=== PATIENT | female | born 1960 | race African-American/Black ===

== ENCOUNTER 2024-05-30 10:38 | Observation (INO) ==
[2024-05-30 16:02] LABS: BASOPHILS % (AUTO) 0.3 % (0.2-1.0); EOSINOPHILS % (AUTO) 0.2 % (0.9-2.9); HEMOGLOBIN 10.1 g/dL (12.0-16.0); LYMPHOCYTES % (AUTO) 10.4 % (21.0-51.0); MEAN CORPUSCULAR HEMOGLOBIN 25.9 pg (27.0-34.0); MEAN CORPUSCULAR HGB CONC 32.6 g/dL (33.0-35.0); MEAN CORPUSCULAR VOLUME 79.4 fL (80.0-100.0); MEAN PLATELET VOLUME 6.9 fL (7.4-11.0); MONOCYTES # (AUTO) 0.7 x10^3/uL (0.3-0.8); MONOCYTES % (AUTO) 7.3 % (0.0-13.0); NEUTROPHILS # (AUTO) 8.2 x10^3/uL (2.2-4.8); NEUTROPHILS % (AUTO) 81.8 % (42.0-75.0); PLATELET COUNT 303 X10^3/uL (150.0-450.0); RED CELL DISTRIBUTION WIDTH 15.9 % (11.6-16.5)
[2024-05-30 16:09] LABS: ALBUMIN 2.9 g/dL (3.4-5.0); CALCIUM 9.4 mg/dL (8.5-10.1); CARBON DIOXIDE 32.4 mmol/L (21-32); COR CA(FOR HYPOALB) 10.3 mg/dL (8.5-10.1); CREATININE 1.19 mg/dL (0.55-1.02); POTASSIUM 3.9 mmol/L (3.5-5.1); TOTAL PROTEIN 8.1 g/dL (6.4-8.2)
[2024-05-30] MEDS: NORCO 5/325 MG TAB PO PRN (16:36)
[2024-05-30] MEDS: PROVENTIL NEB TX 0.083% 2.5MG/ 3ML NEB SCH (17:30)
[2024-05-30] MEDS: DILAUDID INJ IVP PRN (18:37)
[2024-05-30] MEDS: PULMICORT NEB TX 0.5 MG NEB SCH (19:47)
[2024-05-31] MEDS: PULMICORT NEB TX 0.5 MG NEB ONE (02:39)
[2024-05-31] MEDS: HYDROCHLOROTHIAZIDE 25 MG TAB PO SCH (11:11)
[2024-05-31] MEDS: COZAAR PO SCH (11:11)
[2024-05-31] MEDS: HIBICLENS WASH EXT ONE (21:27)
[2024-06-01 06:23] LABS: BASOPHILS # (AUTO) 0.1 X10^3/uL (0.0-0.1); BASOPHILS % (AUTO) 0.4 % (0.2-1.0); EOSINOPHILS % (AUTO) 0.1 % (0.9-2.9); HEMATOCRIT 26.9 % (36.0-47.0); HEMOGLOBIN 8.8 g/dL (12.0-16.0); LYMPHOCYTES # (AUTO) 1.4 X10^3/uL (1.3-2.9); LYMPHOCYTES % (AUTO) 9.7 % (21.0-51.0); MEAN CORPUSCULAR HEMOGLOBIN 25.7 pg (27.0-34.0); MEAN CORPUSCULAR HGB CONC 32.7 g/dL (33.0-35.0); MEAN CORPUSCULAR VOLUME 78.7 fL (80.0-100.0); MEAN PLATELET VOLUME 7.3 fL (7.4-11.0); MONOCYTES # (AUTO) 1.3 x10^3/uL (0.3-0.8); MONOCYTES % (AUTO) 9.2 % (0.0-13.0); NEUTROPHILS # (AUTO) 11.6 x10^3/uL (2.2-4.8); NEUTROPHILS % (AUTO) 80.6 % (42.0-75.0); PLATELET COUNT 286 X10^3/uL (150.0-450.0); RED BLOOD COUNT 3.42 X10^6/uL (3.5-5.4); RED CELL DISTRIBUTION WIDTH 15.9 % (11.6-16.5); WHITE BLOOD COUNT 14.4 X10^3/uL (3.6-10.0)
[2024-06-01 07:03] LABS: ALANINE AMINOTRANSFERASE 17 Units/L (12-78); ALBUMIN 2.4 g/dL (3.4-5.0); ALKALINE PHOSPHATASE 69 Units/L (46-116); ASPARTATE AMINO TRANSFERASE 17 Units/L (15-37); BLOOD UREA NITROGEN 25 mg/dL (7-18); CALCIUM 9.1 mg/dL (8.5-10.1); CARBON DIOXIDE 30.3 mmol/L (21-32); CHLORIDE 102 mmol/L (98-107); COR CA(FOR HYPOALB) 10.4 mg/dL (8.5-10.1); CREATININE 1.15 mg/dL (0.55-1.02); GLUCOSE 109 mg/dL (65-99); SODIUM 139 mmol/L (136-145); TOTAL PROTEIN 7.4 g/dL (6.4-8.2); eGFR NON BLACK RACES 50 (>60)
--- NOTE | 2024-06-01 08:13 | NOTE.SOAP ---
Soap Note Note for Day of Date of Exam: 05/31/24 Subjective Data Subjective Data: patient is status post right iliac vein stenting several weeks ago. Patient with significant swelling of the right leg. Negative ultrasound for DVT. Patient admitted for pain control. Patient will need repeat venogram and intravascular ultrasound to make sure the stent is intact and doing its job. Objective Data Temperature: 98.2 F Pulse Rate: 87 Respiratory Rate: 20 Blood Pressure: 124/63 O2 Sat by Pulse Oximetry: 98 Objective Data: Swollen right leg , tender to touch Assessment Assessment: swollen right leg Plan Plan: plan venogram and IVUS
[2024-06-01] MEDS: ZOSYN VIAL 3.375 GRAMS 3.375 G in NS 100 ML IV 100 ML IV SCH (08:47)
[2024-06-01] MEDS: NS 250 ML IV 25 ML IV PRN (08:49)
[2024-06-01] MEDS: LR 1,000 ML IV 1,000 ML IV ONE (10:27)
--- NOTE | 2024-06-01 10:32 | DR.H&P ---
H&P History & Physical for Day of: H&P Date: 05/30/24 Chief Complaint Chief Complaint: right leg pain and swelling , Hx or right iliac vein stenting 1 month ago History of Present Illness History of Present Illness: 66 year old female who has had significant swelling of both lower extremities who has had bilateral iliac vein stenting , The right side in February of this year and the left side 2 months ago .She presented with s ignificant swelling of the right leg and had a venous dopper study showing no obvious deep Venous Thrombosis. It has been extremely painful and she was admitted for pain control and further evaluation. She has been taking Xarelto and aspirin. Past Medical History Past Medical History: COPD, Dyslipidemia, GERD and Hypertension Past Surgical History Surgical History: Appendectomy, Hysterectomy and Ortho Surgery (left TKA) Family History Family Medical History: Diabetes Mellitus and Hypertension Social History Does patient currently use any type of tobacco product: Yes Type of Tobacco Use: Cigarettes Does any household member use tobacco: No Alcohol Use: None Medications Home Medications: Home Medications Medication Instructions Recorded Confirmed Type albuterol sulfate 90 mcg/actuation 2 puff inhalation Q4H PRN 05/30/24 05/30/24 History aerosol inhaler aspirin 81 mg tablet 81 mg PO QDAY 05/30/24 05/30/24 History atorvastatin 40 mg tablet 40 mg PO QDAY 05/30/24 05/30/24 History cetirizine 10 mg tablet 10 mg PO QDAY 05/30/24 05/30/24 History clotrimazole-betamethasone 1 1 applic topical BID 05/30/24 05/30/24 History %-0.05 % topical cream famotidine 40 mg tablet 40 mg PO QPM 05/30/24 05/30/24 History hydrochlorothiazide 25 mg tablet 25 mg PO QAM 05/30/24 05/30/24 History hydrocodone 10 mg-acetaminophen 1 tab PO QID PRN 05/30/24 05/30/24 History 325 mg tablet ibuprofen 800 mg tablet 800 mg PO TID 05/30/24 05/30/24 History losartan 100 mg tablet 100 mg PO QDAY 05/30/24 05/30/24 History omeprazole 40 mg capsule,delayed 40 mg PO QDAY 05/30/24 05/30/24 History release rivaroxaban 2.5 mg tablet (Xarelto) 2.5 mg PO BID 05/30/24 05/30/24 History tiotropium bromide 18 mcg capsule 1 cap inhalation QDAY 05/30/24 05/30/24 History with inhalation device (Spiriva with HandiHaler) vibegron 75 mg tablet (Gemtesa) 75 mg PO QDAY 05/30/24 05/30/24 History zolpidem 10 mg tablet 10 mg PO QPM PRN 05/30/24 05/30/24 History Allergies Allergies Allergy/AdvReac Type Severity Reaction Status Date / Time No Known Allergies Allergy Verified 03/09/24 07:35 Labs 06/01/24 05:24 06/01/24 05:24 Labs: Laboratory WBC 14.4 X10^3/uL (3.6-10.0) H 06/01/24 05:24 RBC 3.42 X10^6/uL (3.5-5.4) L 06/01/24 05:24 Hgb 8.8 g/dL (12.0-16.0) L 06/01/24 05:24 Hct 26.9 % (36.0-47.0) L 06/01/24 05:24 MCV 78.7 fL (80.0-100.0) L 06/01/24 05:24 MCH 25.7 pg (27.0-34.0) L 06/01/24 05:24 MCHC 32.7 g/dL (33.0-35.0) L 06/01/24 05:24 RDW 15.9 % (11.6-16.5) 06/01/24 05:24 Plt Count 286 X10^3/uL (150.0-450.0) 06/01/24 05:24 MPV 7.3 fL (7.4-11.0) L 06/01/24 05:24 Neut % (Auto) 80.6 % (42.0-75.0) H 06/01/24 05:24 Lymph % (Auto) 9.7 % (21.0-51.0) L 06/01/24 05:24 [place] % (Auto) 9.2 % (0.0-13.0) 06/01/24 05:24 Eos % (Auto) 0.1 % (0.9-2.9) L 06/01/24 05:24 Baso % (Auto) 0.4 % (0.2-1.0) 06/01/24 05:24 Neut # (Auto) 11.6 x10^3/uL (2.2-4.8) H 06/01/24 05:24 Lymph # (Auto) 1.4 X10^3/uL (1.3-2.9) 06/01/24 05:24 [place] # (Auto) 1.3 x10^3/uL (0.3-0.8) H 06/01/24 05:24 Eos # (Auto) 0.0 x10^3/uL (0.0-0.2) 06/01/24 05:24 Baso # (Auto) 0.1 X10^3/uL (0.0-0.1) 06/01/24 05:24 Absolute Nucleated RBC 0.0 /100WBC 06/01/24 05:24 Sodium 139 mmol/L (136-145) 06/01/24 05:24 Corrected Sodium TNP 06/01/24 05:24 Potassium 4.0 mmol/L (3.5-5.1) 06/01/24 05:24 Chloride 102 mmol/L (98-107) 06/01/24 05:24 Carbon Dioxide 30.3 mmol/L (21-32) 06/01/24 05:24 BUN 25 mg/dL (7-18) H 06/01/24 05:24 Creatinine 1.15 mg/dL (0.55-1.02) H 06/01/24 05:24 Est GFR (MDRD) Af Amer > 60 (>60) 06/01/24 05:24 Est GFR (MDRD) Non-Af 50 (>60) L 06/01/24 05:24 Glucose 109 mg/dL (65-99) H 06/01/24 05:24 Calcium 9.1 mg/dL (8.5-10.1) 06/01/24 05:24 Corrected Calcium 10.4 mg/dL (8.5-10.1) H 06/01/24 05:24 Total Bilirubin 0.50 mg/dL (0.2-1.0) 06/01/24 05:24 AST 17 Units/L (15-37) 06/01/24 05:24 ALT 17 Units/L (12-78) 06/01/24 05:24 Alkaline Phosphatase 69 Units/L (46-116) 06/01/24 05:24 Total Protein 7.4 g/dL (6.4-8.2) 06/01/24 05:24 Albumin 2.4 g/dL (3.4-5.0) L 06/01/24 05:24 Globulin 5.0 g/dL (2.5-4.5) H 06/01/24 05:24 Albumin/Globulin Ratio 0.5 Ratio (1.1-2.1) L 06/01/24 05:24 Review of Systems Constitutional: See HPI Eyes: No Symptoms Reported ENT: No Symptoms Reported Respiratory: No Symptoms Reported Cardiovascular: No Symptoms Reported Gastrointestinal: No Symptoms Reported Genitourinary: No Symptoms Reported Musculoskeletal: No Symptoms Reported Skin: No Symptoms Reported Neurological: No Symptoms Reported Physical Exam Vital Signs: Vital Signs Temperature 98.2 F Temperature 98.8 F Temperature 98.8 F Pulse Rate [Brachial] 78 Pulse Rate [Brachial] 79 Pulse Rate 87 Pulse Rate 72 Respiratory Rate 20 Respiratory Rate 20 Respiratory Rate 20 Respiratory Rate 18 Respiratory Rate 18 Respiratory Rate 18 Respiratory Rate 20 Blood Pressure [Left Arm] 113/58 Blood Pressure [Left Arm] 134/63 Blood Pressure 124/63 O2 Sat by Pulse Oximetry 98 O2 Sat by Pulse Oximetry 94 O2 Sat by Pulse Oximetry 93 O2 Sat by Pulse Oximetry 95 Oriented: Normal, Time, Person and Place Eyes: Normal Ear: Normal Nose: Normal Throat: Normal Respiratory: Clear Throughout Cardiovascular: Normal : Normal Auscultation: Bowel Sounds: Normal Palpation: Normal Tenderness: Normal Skin: Other (Significant swelling of the right leg with mild redness around the ankles ultrasound for DVT negative ) Musculoskeletal: Normal Psychiatric: Normal Mood Description: Calm Affect: Normal Speech Pattern: Clear and Appropriate Assessment/Plan (1) Right leg swelling: Status: Acute Plan: admit, SQ Lovenox , plan venogram and IVUS right iliac vein stent , May need angioplasty ve additional stent (2) Compression of vein: Status: Acute (3) Essential (primary) hypertension: Status: Acute (4) Gastro-esophageal reflux disease without esophagitis: Status: Acute (5) Hyperlipidemia: Status: Acute (6) COPD (chronic obstructive pulmonary disease): Status: Acute
[2024-06-01] MEDS: DUONEB 0.5 MG/3 MG (3 mL) NEB ONE (10:50)
[2024-06-01] MEDS: REGLAN INJ 10 MG VIAL ONE (11:08)
[2024-06-01] MEDS: NS 1,000 ML IV 1,000 ML ONE (11:08)
[2024-06-01] MEDS ORDERED: KETAMINE HCL ONE (11:08)
[2024-06-01] MEDS: ZOFRAN INJ 4 MG VIAL ONE (11:08)
[2024-06-01] MEDS: OFIRMEV IV 1000 MG VIAL 1,000 MG/100 ML VIAL IV ONE (11:08)
[2024-06-01] MEDS: VERSED ONE (11:08)
[2024-06-01] MEDS ORDERED: XYLOCAINE 2 % (PLAIN) ONE (11:08)
[2024-06-01] MEDS ORDERED: PRECEDEX INJ VIAL ONE (11:08)
[2024-06-01] MEDS: PEPCID 20 MG VIAL ONE (11:08)
[2024-06-01] MEDS: FENTANYL VIAL INJ 100 mcg ONE (11:08)
[2024-06-01] MEDS: DIPRIVAN VIAL 20 ML ONE (11:08)
[2024-06-01] MEDS: MARCAINE 0.5% ONE (11:31)
[2024-06-01] MEDS: HEPARIN SODIUM IN D5W 75,000 UNITS/1,500 ML BAG ONE (11:31)
[2024-06-01] MEDS: VISIPAQUE 50 ML ONE (11:31)
[2024-06-01] MEDS: HEPARIN SODIUM INJ 5000 UNITS ONE (11:35)
[2024-06-01] MEDS: EPHEDRINE SULFATE INJ ONE (11:40)
[2024-06-01] MEDS: PROTAMINE SULFATE 50 MG VIAL ONE (11:53)
--- NOTE | 2024-06-01 12:14 | OR.IMMED ---
IMMEDIATE POST-OP NOTE Immediate Post-Op Note Date of surgery/procedure: 06/01/24 Pre-Op Diagnosis: swollen right leg Post-Op Diagnosis: right iliac vein stent patent , compression of the right priximal common femoral vein > 50 % Procedure: Right iliac venogram, right iliac vein intravascular ultrasound, stenting proximal right common femoral vein Description of Procedure: see dictation Surgeon/Corporate Trainer: Karla Findings: as above Estimated Blood Loss: < 50 cc Complications: none Progress Notes: to CCU, continue IV antibiotics and begin Xarelto 2.5 mg po daily, continue aspirin
[2024-06-01] MEDS: COLACE CAP 100 MG PO PRN (21:04)
[2024-06-01] MEDS: XARELTO PO SCH (21:04)
[2024-06-02 05:29] LABS: BASOPHILS # (AUTO) 0.1 X10^3/uL (0.0-0.1); BASOPHILS % (AUTO) 0.8 % (0.2-1.0); EOSINOPHILS % (AUTO) 0.2 % (0.9-2.9); HEMATOCRIT 26.5 % (36.0-47.0); HEMOGLOBIN 8.6 g/dL (12.0-16.0); LYMPHOCYTES # (AUTO) 0.9 X10^3/uL (1.3-2.9); LYMPHOCYTES % (AUTO) 7.8 % (21.0-51.0); MEAN CORPUSCULAR HEMOGLOBIN 25.7 pg (27.0-34.0); MEAN CORPUSCULAR HGB CONC 32.5 g/dL (33.0-35.0); MEAN PLATELET VOLUME 7.5 fL (7.4-11.0); MONOCYTES # (AUTO) 0.9 x10^3/uL (0.3-0.8); MONOCYTES % (AUTO) 8.4 % (0.0-13.0); NEUTROPHILS # (AUTO) 9.1 x10^3/uL (2.2-4.8); NEUTROPHILS % (AUTO) 82.8 % (42.0-75.0); PLATELET COUNT 308 X10^3/uL (150.0-450.0); RED BLOOD COUNT 3.35 X10^6/uL (3.5-5.4); RED CELL DISTRIBUTION WIDTH 16.1 % (11.6-16.5); WHITE BLOOD COUNT 11.1 X10^3/uL (3.6-10.0)
[2024-06-02 07:03] VITALS: BMI 54.1
[2024-06-02] MEDS: HIBICLENS WASH ONE (09:55)
[2024-06-02] MEDS: ASPIRIN EC 81 MG PO SCH (10:01)
[2024-06-02] MEDS ORDERED: MAALOX or MYLANTA PO PRN (14:01)
[2024-06-02] MEDS: PEPCID TAB 40 MG PO SCH (14:48)
--- NOTE | 2024-06-02 23:18 | NOTE.SOAP ---
Soap Note Note for Day of Date of Exam: 06/02/24 Subjective Data Subjective Data: Right leg less swollen after additional stent placed right iliac vein. Still painful, Probable cellulitis as well Objective Data Temperature: 99.3 F Pulse Rate: 82 Respiratory Rate: 25 Blood Pressure: 119/58 O2 Sat by Pulse Oximetry: 95 Objective Data: as above Assessment Assessment: right iliac vein compression, cellulitis right leg Plan Plan: Continue IV antibiotics
[2024-06-03] MEDS: MILK OF MAGNESIA PO PRN (03:48)
--- NOTE | 2024-06-03 16:18 | NOTE.SOAP ---
Soap Note Note for Day of Date of Exam: 06/03/24 Subjective Data Subjective Data: right lower leg still red and tender Objective Data Temperature: 98.4 F Pulse Rate: 85 Respiratory Rate: 16 Blood Pressure: 118/55 O2 Sat by Pulse Oximetry: 96 Objective Data: as above Assessment Assessment: Cellulitis of right leg , right iliac vein compression s/p stenting Plan Plan: Continue IV antibiotics , add Vancomycin
[2024-06-03] MEDS ORDERED: PHARMACY CONSULT - VANCOMYCIN XX SCH (17:00)
[2024-06-03] MEDS: VANCOMYCIN IV *PREMIX 1 G/200 ML BAG 1 G/200 ML PIGGYBACK IV SCH (17:38)
[2024-06-03] MEDS: VANCOMYCIN IV *PREMIX 2 G/400 ML BAG 2 G/400 ML PIGGYBACK IV SCH (20:00)
[2024-06-05 05:09] LABS: BASOPHILS # (AUTO) 0.1 X10^3/uL (0.0-0.1); BASOPHILS % (AUTO) 0.7 % (0.2-1.0); EOSINOPHILS # (AUTO) 0.1 x10^3/uL (0.0-0.2); EOSINOPHILS % (AUTO) 0.7 % (0.9-2.9); HEMATOCRIT 27.5 % (36.0-47.0); HEMOGLOBIN 9.1 g/dL (12.0-16.0); LYMPHOCYTES # (AUTO) 1.6 X10^3/uL (1.3-2.9); LYMPHOCYTES % (AUTO) 17.4 % (21.0-51.0); MEAN CORPUSCULAR HEMOGLOBIN 25.9 pg (27.0-34.0); MEAN CORPUSCULAR VOLUME 78.6 fL (80.0-100.0); MONOCYTES # (AUTO) 0.8 x10^3/uL (0.3-0.8); MONOCYTES % (AUTO) 8.6 % (0.0-13.0); NEUTROPHILS # (AUTO) 6.5 x10^3/uL (2.2-4.8); NEUTROPHILS % (AUTO) 72.6 % (42.0-75.0); PLATELET COUNT 352 X10^3/uL (150.0-450.0); RED CELL DISTRIBUTION WIDTH 15.8 % (11.6-16.5); WHITE BLOOD COUNT 8.9 X10^3/uL (3.6-10.0)
--- NOTE | 2024-06-05 10:55 | W.DIS.FURT ---
Summary of Discharge Discharge Summary of Date Date of Exam: 06/05/24 Admission Date Date of Admission: 05/30/24 Admission Diagnosis Hospital Course: This is a 63 year old female who has had bilateral iliac vein stenting for iliac vein compression in the past who presented with markd swelling of the right leg. Ultrasound showed no obvious deep venous thrombosis . 2 Days Later the leg did become red. Patient was admitted for evaluation, IV antibiotics and venogram of the right leg. She was taken to the operating Suite on May where she underwent intravascular ultrasound and venogram of the right leg showing area of compression of the distal right external iliac vein distal to the previously placed stetn which was extended. The leg became more eryhtmatous distally and she was placed on IV antibiotics and now is markedly improved with some complaints of some pain but this also is improved. She will be discharged today on PO Percocet, 5m tablets , 1 every 6 hours per in pain and Clindamycin 150 milligrams TID. She Will Follow with me in 1 week. Vital Signs: Vital Signs (72 hours) 06/02/24 23:18 06/03/24 16:17 06/02/24 11:00 Temperature 99.3 F 98.4 F Pulse Rate 82 85 Pulse Rate [Brachial] Respiratory Rate 25 H 16 22 Blood Pressure 119/58 118/55 Blood Pressure [Left Arm] O2 Sat by Pulse Oximetry 95 96 Oxygen Delivery Method FIO2% 06/02/24 12:00 06/02/24 16:24 06/02/24 17:16 Temperature 98.2 F Pulse Rate 69 Pulse Rate [Brachial] 70 Respiratory Rate 14 22 Blood Pressure Blood Pressure [Left Arm] 119/57 O2 Sat by Pulse Oximetry 100 97 Oxygen Delivery Method Room Air FIO2% 06/02/24 16:00 06/02/24 20:00 06/02/24 19:00 Temperature 98.1 F 99.3 F Pulse Rate Pulse Rate [Brachial] 89 82 Respiratory Rate 25 H 25 H Blood Pressure Blood Pressure [Left Arm] 119/57 119/58 O2 Sat by Pulse Oximetry 96 95 Oxygen Delivery Method Room Air Room Air Room Air FIO2% 06/02/24 19:00 06/02/24 20:00 06/02/24 20:02 Temperature Pulse Rate 72 Pulse Rate [Brachial] Respiratory Rate 25 H Blood Pressure Blood Pressure [Left Arm] O2 Sat by Pulse Oximetry 97 Oxygen Delivery Method Room Air FIO2% 06/02/24 23:22 06/03/24 00:00 06/03/24 04:00 Temperature 98.9 F 98.4 F Pulse Rate Pulse Rate [Brachial] 86 78 Respiratory Rate 25 H 21 19 Blood Pressure Blood Pressure [Left Arm] 132/61 122/63 O2 Sat by Pulse Oximetry 95 95 Oxygen Delivery Method Room Air Room Air FIO2% 06/03/24 00:22 06/03/24 07:05 06/03/24 08:00 Temperature 98.0 F Pulse Rate Pulse Rate [Brachial] 75 Respiratory Rate 21 19 17 Blood Pressure Blood Pressure [Left Arm] 124/58 O2 Sat by Pulse Oximetry 94 L Oxygen Delivery Method Room Air FIO2% 06/03/24 07:00 06/03/24 08:05 06/03/24 09:43 Temperature Pulse Rate Pulse Rate [Brachial] Respiratory Rate 19 Blood Pressure Blood Pressure [Left Arm] O2 Sat by Pulse Oximetry Oxygen Delivery Method Room Air Room Air FIO2% 3 06/03/24 09:43 06/03/24 12:00 06/03/24 15:53 Temperature 98.4 F Pulse Rate 85 Pulse Rate [Brachial] 85 Respiratory Rate 16 16 Blood Pressure Blood Pressure [Left Arm] 118/57 O2 Sat by Pulse Oximetry 96 96 Oxygen Delivery Method Room Air FIO2% 06/03/24 16:00 06/03/24 16:53 06/03/24 20:18 Temperature 98.4 F Pulse Rate 72 Pulse Rate [Brachial] 76 Respiratory Rate 20 16 Blood Pressure Blood Pressure [Left Arm] 133/63 O2 Sat by Pulse Oximetry 97 99 Oxygen Delivery Method Room Air FIO2% 06/03/24 20:19 06/03/24 19:00 06/03/24 20:00 Temperature 99.2 F Pulse Rate Pulse Rate [Brachial] 75 Respiratory Rate 36 H Blood Pressure Blood Pressure [Left Arm] 124/79 O2 Sat by Pulse Oximetry 99 Oxygen Delivery Method Room Air Room Air Room Air FIO2% 06/04/24 00:00 06/04/24 02:36 06/04/24 03:36 Temperature 99.2 F Pulse Rate Pulse Rate [Brachial] 80 Respiratory Rate 25 H 22 20 Blood Pressure Blood Pressure [Left Arm] 147/68 O2 Sat by Pulse Oximetry 95 Oxygen Delivery Method Room Air FIO2% 06/04/24 04:00 06/04/24 08:39 06/04/24 08:28 Temperature 98.9 F Pulse Rate Pulse Rate [Brachial] 80 Respiratory Rate 22 22 22 Blood Pressure Blood Pressure [Left Arm] 149/65 O2 Sat by Pulse Oximetry 89 L Oxygen Delivery Method Room Air Room Air FIO2% 06/04/24 08:29 06/04/24 07:00 06/04/24 08:00 Temperature 97.9 F Pulse Rate 63 Pulse Rate [Brachial] 75 Respiratory Rate 21 Blood Pressure Blood Pressure [Left Arm] 118/54 O2 Sat by Pulse Oximetry 100 96 Oxygen Delivery Method Room Air Room Air FIO2% 06/04/24 09:39 06/04/24 12:00 06/04/24 13:21 Temperature 97.8 F Pulse Rate 63 Pulse Rate [Brachial] 84 Respiratory Rate 22 19 Blood Pressure Blood Pressure [Left Arm] 120/59 O2 Sat by Pulse Oximetry 95 95 Oxygen Delivery Method Room Air FIO2% 06/04/24 15:08 06/04/24 16:00 06/04/24 16:08 Temperature 98.7 F Pulse Rate Pulse Rate [Brachial] 70 Respiratory Rate 19 20 19 Blood Pressure Blood Pressure [Left Arm] 136/61 O2 Sat by Pulse Oximetry 98 Oxygen Delivery Method Room Air FIO2% 06/04/24 20:03 06/04/24 20:03 06/04/24 19:00 Temperature Pulse Rate 75 Pulse Rate [Brachial] Respiratory Rate Blood Pressure Blood Pressure [Left Arm] O2 Sat by Pulse Oximetry 97 Oxygen Delivery Method Room Air Room Air FIO2% 06/04/24 20:00 06/05/24 00:00 06/05/24 06:32 Temperature 98.5 F 98.7 F Pulse Rate Pulse Rate [Brachial] 75 80 Respiratory Rate 20 21 23 Blood Pressure Blood Pressure [Left Arm] 110/55 161/72 O2 Sat by Pulse Oximetry 98 93 L Oxygen Delivery Method Room Air Room Air FIO2% 06/05/24 04:00 06/05/24 08:07 06/05/24 08:00 Temperature 98.9 F 98.8 F Pulse Rate Pulse Rate [Brachial] 74 Respiratory Rate 19 Blood Pressure Blood Pressure [Left Arm] 169/78 O2 Sat by Pulse Oximetry 93 L Oxygen Delivery Method Room Air Room Air FIO2% 06/05/24 10:01 06/05/24 07:00 Temperature 98.8 F Pulse Rate Pulse Rate [Brachial] 82 Respiratory Rate 26 H Blood Pressure Blood Pressure [Left Arm] 123/56 O2 Sat by Pulse Oximetry 93 L Oxygen Delivery Method Room Air Room Air FIO2% Labs: Laboratory Last Values WBC 8.9 X10^3/uL (3.6-10.0) 06/05/24 04:20 RBC 3.50 X10^6/uL (3.5-5.4) 06/05/24 04:20 Hgb 9.1 g/dL (12.0-16.0) L 06/05/24 04:20 Hct 27.5 % (36.0-47.0) L 06/05/24 04:20 MCV 78.6 fL (80.0-100.0) L 06/05/24 04:20 MCH 25.9 pg (27.0-34.0) L 06/05/24 04:20 MCHC 33.0 g/dL (33.0-35.0) 06/05/24 04:20 RDW 15.8 % (11.6-16.5) 06/05/24 04:20 Plt Count 352 X10^3/uL (150.0-450.0) 06/05/24 04:20 MPV 7.0 fL (7.4-11.0) L 06/05/24 04:20 Neut % (Auto) 72.6 % (42.0-75.0) 06/05/24 04:20 Lymph % (Auto) 17.4 % (21.0-51.0) L 06/05/24 04:20 [place] % (Auto) 8.6 % (0.0-13.0) 06/05/24 04:20 Eos % (Auto) 0.7 % (0.9-2.9) L 06/05/24 04:20 Baso % (Auto) 0.7 % (0.2-1.0) 06/05/24 04:20 Neut # (Auto) 6.5 x10^3/uL (2.2-4.8) H 06/05/24 04:20 Lymph # (Auto) 1.6 X10^3/uL (1.3-2.9) 06/05/24 04:20 [place] # (Auto) 0.8 x10^3/uL (0.3-0.8) 06/05/24 04:20 Eos # (Auto) 0.1 x10^3/uL (0.0-0.2) 06/05/24 04:20 Baso # (Auto) 0.1 X10^3/uL (0.0-0.1) 06/05/24 04:20 Absolute Nucleated RBC 0.0 /100WBC 06/05/24 04:20 Sodium 139 mmol/L (136-145) 06/01/24 05:24 Corrected Sodium TNP 06/01/24 05:24 Potassium 4.0 mmol/L (3.5-5.1) 06/01/24 05:24 Chloride 102 mmol/L (98-107) 06/01/24 05:24 Carbon Dioxide 30.3 mmol/L (21-32) 06/01/24 05:24 BUN 25 mg/dL (7-18) H 06/01/24 05:24 Creatinine 1.15 mg/dL (0.55-1.02) H 06/01/24 05:24 Est GFR (MDRD) Af Amer > 60 (>60) 06/01/24 05:24 Est GFR (MDRD) Non-Af 50 (>60) L 06/01/24 05:24 Glucose 109 mg/dL (65-99) H 06/01/24 05:24 Calcium 9.1 mg/dL (8.5-10.1) 06/01/24 05:24 Corrected Calcium 10.4 mg/dL (8.5-10.1) H 06/01/24 05:24 Total Bilirubin 0.50 mg/dL (0.2-1.0) 06/01/24 05:24 AST 17 Units/L (15-37) 06/01/24 05:24 ALT 17 Units/L (12-78) 06/01/24 05:24 Alkaline Phosphatase 69 Units/L (46-116) 06/01/24 05:24 Total Protein 7.4 g/dL (6.4-8.2) 06/01/24 05:24 Albumin 2.4 g/dL (3.4-5.0) L 06/01/24 05:24 Globulin 5.0 g/dL (2.5-4.5) H 11/07/24 05:24 Albumin/Globulin Ratio 0.5 Ratio (1.1-2.1) L 06/01/24 05:24 Reason For Visit: INTRACTABLE PAIN RIGHT LEG WITH SWELLING Discharge Date Discharge Date: 06/05/24 Discharge Diagnosis All Active Problems (Updated 06/05/24 @ 10:49 by Mynor Acosta) Cellulitis of right leg (Acute) COPD (chronic obstructive pulmonary disease) (Acute) Hyperlipidemia (Acute) Gastro-esophageal reflux disease without esophagitis (Acute) Essential (primary) hypertension (Acute) Compression of vein (Acute) Right leg swelling (Acute) Plan of Treatment: Continue with present treatment and follow up plan. Pt is to keep follow up appointment as instructed and take medications as ordered. Discharge Medications Discharge Medications: No Known Allergies Allergy (Verified 03/09/24 07:35) CONTINUE taking the following medications albuterol sulfate 90 mcg/actuation aerosol inhaler 2 puff inhalation Q4H PRN 05/30/24 [History] aspirin 81 mg tablet 81 mg PO QDAY 05/30/24 [History] atorvastatin 40 mg tablet 40 mg PO QDAY 05/30/24 [History] cetirizine 10 mg tablet 10 mg PO QDAY 05/30/24 [History] clotrimazole-betamethasone 1 %-0.05 % topical cream 1 applic topical BID 05/30/24 [History] famotidine 40 mg tablet 40 mg PO QPM 05/30/24 [History] hydrochlorothiazide 25 mg tablet 25 mg PO QAM 05/30/24 [History] hydrocodone 10 mg-acetaminophen 325 mg tablet 1 tab PO QID PRN 05/30/24 [History] ibuprofen 800 mg tablet 800 mg PO TID 05/30/24 [History] losartan 100 mg tablet 100 mg PO QDAY 05/30/24 [History] omeprazole 40 mg capsule,delayed release 40 mg PO QDAY 05/30/24 [History] rivaroxaban 2.5 mg tablet (Xarelto) 2.5 mg PO BID 05/30/24 [History] tiotropium bromide 18 mcg capsule with inhalation device (Spiriva with HandiHaler) 1 cap inhalation QDAY 05/30/24 [History] vibegron 75 mg tablet (Gemtesa) 75 mg PO QDAY 05/30/24 [History] zolpidem 10 mg tablet 10 mg PO QPM PRN 05/30/24 [History] Clindamycin 150 mg, 1 po q 6 hr PRNpain, #30 Percocet, 5mg, 1 po q 6 hr PRN pain Discharge Disposition Assessment: see hospital course Discharge Plan Discharge Plan Hospital Course: This is a 63 year old female who has had bilateral iliac vein stenting for iliac vein compression in the past who presented with markd swelling of the right leg. Ultrasound showed no obvious deep venous thrombosis . 2 Days Later the leg did become red. Patient was admitted for evaluation, IV antibiotics and venogram of the right leg. She was taken to the operating Suite on May the where she underwent intravascular ultrasound and venogram of the right leg showing area of compression of the distal right external iliac vein distal to the previously placed stetn which was extended. The leg became more eryhtmatous distally and she was placed on IV antibiotics and now is markedly improved with some complaints of some pain but this also is improved. She will be discharged today on PO Percocet, 5m tablets , 1 every 6 hours per in pain and Clindamycin 150 milligrams TID. She Will Follow with me in 1 week. Patient Disposition: HOME, SELF-CARE Condition: Stable Health Concerns: Post Hospitalization: new medications and changes needed to prevent readmission or further decline. Pt educated and given instructions on all concerns. Care Plan Goals: Problem: Pain/Alteration in Comfort Goal: Improve/ Resolve Pain; Achieve Pain Tolerance Instructions: Take pain medications as prescribed. Contact your primary care provider if your pain is unrelieved or worsens. Follow up with primary care provider as directed. Plan of Treatment: Continue with present treatment and follow up plan. Pt is to keep follow up appointment as instructed and take medications as ordered. Assessment: see hospital course Prescription drug monitoring program results: PDMP reviewed with concerns identified Prescriptions: New clindamycin HCl 150 mg capsule 150 mg PO TID Qty: 30 0RF oxycodone-acetaminophen [Percocet] 5-325 mg tablet 1 tab PO Q6H MDD 4 PRNQty: 30 0RF Continued atorvastatin 40 mg tablet 40 mg PO QDAY cetirizine 10 mg tablet 10 mg PO QDAY ibuprofen 800 mg tablet 800 mg PO TID famotidine 40 mg tablet 40 mg PO QPM hydrocodone-acetaminophen 10-325 mg tablet 1 tab PO QID PRN omeprazole 40 mg capsule,delayed release(DR/EC) 40 mg PO QDAY clotrimazole-betamethasone 1-0.05 % cream 1 applic TOPICAL BID aspirin 81 mg Tablet 81 mg PO QDAY hydrochlorothiazide 25 mg tablet 25 mg PO QAM zolpidem 10 mg tablet 10 mg PO QPM PRN albuterol sulfate 90 mcg/actuation HFA aerosol inhaler 2 puff INHALATION Q4H PRN losartan 100 mg tablet 100 mg PO QDAY tiotropium bromide [Spiriva with HandiHaler] 18 mcg capsule, w/inhalation device 1 cap inhalation QDAY Xarelto 2.5 mg tablet 2.5 mg PO BID Gemtesa 75 mg tablet 75 mg PO QDAY Orders to Discharge Patient Discharge Orders: Discharge (Routine); Ordered 06/05/24 Ordered By: Mynor Acosta Follow ups/Referrals Follow ups/Referrals: DALILA POSEY [STAFF PHYSICIAN] - 1 WEEK Mynor Acosta [Primary Care Provider] - 06/12/24 11:30 am Instructions Instructions: Edema, Cough, Adult, COPD and Physical Activity Stand Alone Forms: Excuse From Work or School, [facility], Post Hospital Follow Up Care
[2024-06-05 11:01] VITALS: BP 110/55; PULSE 75; RESP 20; TEMP 98.5; O2SAT 98
--- NOTE | 2024-06-05 11:01 | NOTE.SOAP ---
Soap Note Note for Day of Date of Exam: 06/04/24 Subjective Data Subjective Data: redness right leg continues to improve , as does the swelling and the pain Objective Data Temperature: 98.5 F Pulse Rate: 75 Respiratory Rate: 20 Blood Pressure: 110/55 O2 Sat by Pulse Oximetry: 98 Objective Data: swelling and pain and redness improved right distal leg , WBC=8.9 Assessment Assessment: cellulitis , right iliac vein compression right leg all improving Plan Plan: discharge home tommorrow on po antibiotics
--- NOTE | 2024-06-05 16:38 | DR.OPNOTE ---
OP NOTE Pre-Op Diagnosis: right iliac vein compression Post-Op Diagnosis: e Procedure Date Date Of Procedure: 06/01/24 Procedure: PROCEDURE:RIGHT ILIAC VENOGRAM, RIGHT ILIAC VEIN INTRAVASCULAR ULTRASOUND, STENTING RIGHT EXTERNAL DISTAL ILIAC VEIN NARRATIVE : The patient was taken to the operative suite and placed in the supine position. The right groin was prepped and draped in sterile fashion. The patient was administered intravenous sedation supervised by myself. Time out for the procedure obtained. Ultrasound used to identify the right greater saphenous vein and the skin overlying it infiltrated with 0.5% Marcaine . Ultrasound then use to guide puncture of the right greater saphenous vein and a 0.012 inch guide wire placed . Incision made over this guide wire at the skin edge with a # 11 knife blade and a micro sheath placed over the guide wire into the greater saphenous vein and into the right femoral vein. The small guide wire exchanged for a 0.035 inch Advantage glide wire and the micro sheath exchanged for a 10 Fr vascular sheath. The patient was given 5000 units of intravenous heparin. Right iliac venogram carried out showing intact right common iliac vein and evidence of compression of the right external iliac vein distal mto the current stent in place . Right lliac vein intravascular ultrasound carried out over the wire on the right side showing 48 % compression of the right external ilaic vein. Over the wire we placed a Venous Wall stent measuring 18 x 90 mm and positioned it over the area of compression. . This was balloon dilated with a 18 mm esophageal balloon inflating it to 5 mm of Hg and removing it. Post-procedure intravascular ultrasound showed excellent result. .Wire and sheath in the right groin removed and direct pressure held over the groin puncture site for 10 minutes. The patient was given 30 mg of intravenous Protamine. Hemostatic dressing applied to each puncture site and [facility] Type of Anesthesia: Local (0.5% Marcaine ) Anesthesia Comment: plus MAC Findings: 48 % compression of the distal right external iliac vein Type of Fluids Used:: Lactated Ringers Total Amount of Fluid Infused:: 400cc EBL: < 50 cc Hardware: 18x 90 mm Vwenous Wall stent Complications:: none Needle/Sponge Count:: correct Disposition/Condition: Pt. tolerated procedure without difficulty. Taken to floor in stable condition.
== END 2024-06-05 13:10 | disposition home or self-care (01) ==
LOC: MED/SURG → ICU 06-01 12:53
PROVIDERS: ADMIT Surgery; ATTEND Surgery
DX: Z89.512 Acquired absence of left leg below knee; I87.1 Compression of vein; R26.89 Other abnormalities of gait and mobility; I10 Essential (primary) hypertension; K21.9 Gastro-esophageal reflux disease without esophagitis; L03.115 Cellulitis of right lower limb; M79.89 Other specified soft tissue disorders; J44.9 Chronic obstructive pulmonary disease, unspecified; E78.5 Hyperlipidemia, unspecified